=== PATIENT | female | born 1945 | race Caucasian/White ===

== ENCOUNTER 2020-10-25 14:43 | Outpatient (CLI) | payer MEDICARE, MEDICAID, SELFPAY ==
--- NOTE | 2020-10-25 14:55 | MM_ITS ---
WS: [id number] BILATERAL SCREENING DIGITAL MAMMOGRAM WITH CAD HISTORY: SCREENING COMPARISON: 10/14/2019 Bilateral CC and MLO views submitted. Computer aided detection analyzed. Breast composition: There are scattered areas of fibroglandular density. No suspicious masses, microc alcifications or architectural distortion. Benign calcifications in each breast. MM/[place] [id number] IMPRESSION: BI-RADS: 2-Benign FOLLOW UP: 1 Year Follow-up
== END 2020-10-25 14:44 | disposition home or self-care (01) ==
PROVIDERS: PCP Nurse Practitioner Family; Visit Provider Nurse Practitioner Family
DX: Z12.31 Encounter for screening mammogram for malignant neoplasm of breast (principal)
CPT/HCPCS: 77067

== ENCOUNTER 2020-11-22 11:58 | Outpatient (CLI) | payer MEDICARE, MEDICAID, SELFPAY ==
[2020-11-22 12:33] LABS: Basophils % 0.4 %; Eosinophils % 0.5 %; Hematocrit 36.7 % (37.0-47.0); Hemoglobin 11.3 g/dL (11.5-15.3); Lymphocytes # 1.7 10^3/uL (0.8-4.8); Lymphocytes % 22.1 %; Mean Corpuscular HGB Conc 30.8 g/dL (30.0-36.0); Mean Corpuscular Hemoglobin 28.9 pg (28.0-34.0); Mean Corpuscular Volume 93.9 fL (81-99); Mean Platelet Volume 9.4 fL (7.4-10.4); Monocytes # 0.6 10^3/uL (0.2-0.9); Monocytes % 7.5 %; Neutrophils # 5.29 10^3/uL (1.8-7.7); Neutrophils % 69.2 %; Nucleated Red Blood Cells % 0 %; Platelet Count 373 10^3/cmm (130-400); Red Blood Count 3.91 10^6/uL (4.1-5.3); Red Cell Distribution Width 13.2 % (12.1-15.1); White Blood Count 7.6 10^3/uL (4.0-10.0)
[2020-11-22 13:05] LABS: Alanine Aminotransferase 9 U/L (0-33); Albumin Level 3.8 g/dL (3.5-5.2); Alkaline Phosphatase 69 IU/L (35-105); Anion Gap 12.8 (5-19); Aspartate Amino Transferase 15 U/L (0-32); Blood Urea Nitrogen 12 mg/dL (8-23); Calcium 8.7 mg/dL (8.5-10.5); Carbon Dioxide 26 mmol/L (22-29); Chloride 103 mmol/L (98-107); Glucose 119 mg/dL (65-115); Osmolality Calculated 287 mOsm/kg (285-295); Potassium 3.8 mmol/L (3.5-5.1); Sodium 138 mmol/L (136-145); Thyroid Stimulating Hormone 1.35 uIU/mL (0.27-4.20); Total Bilirubin 0.6 mg/dL (0.15-1.2); Total Protein 6.8 g/dL (6.6-8.7)
== END 2020-11-22 11:59 | disposition home or self-care (01) ==
PROVIDERS: PCP Nurse Practitioner Family; Visit Provider Surgery
DX: R19.7 Diarrhea, unspecified (principal)
CPT/HCPCS: 36415; 80053; 83630; 84443; 85025; 87046; 87177; 87209; 87493

== ENCOUNTER 2020-12-04 11:18 | Outpatient (CLI) | payer MEDICARE, MEDICAID, SELFPAY ==
--- NOTE | 2020-12-04 11:25 | CT_ITS ---
WS: [id number] CT ABDOMEN PELVIS TECHNIQUE: Contrast-enhanced CT of the abdomen and pelvis with coronal and sagittal reformatted image s. CLINICAL INFORMATION: R10.9 - Unspecified abdominal pain COMPARISON: None. DLP: 1108.[address] scans at [facility] use at least one of these dose optimization techniques: automat ed exposure control; mA and/or kV adjustment per patient size (includes targeted exams where dose is matched to clinical indication); or iterative reconstruction. FINDINGS: Diffuse fatty infiltration of the liver. Normal portal vein and splenic vein. Prior cholecystectomy. Normal spleen. Fatty atrophy of the pancreas. Moderate esophageal hiatal hernia. Adrenal glands are n ormal. Normal renal parenchymal enhancement. No hydronephrosis. Aortic calcification. Normal caliber abdominal aorta. Rectal distention with air-fluid level. Mild thickening with mild induration involving the descending left colon and sigmoid colon suspicious for diverticulitis or colitis. Recommend correlation for inf ection. Sigmoid diverticulosis. No evidence of abscess or drainable fluid collection. No evidence of high-grade small or large bowel obstruction. Bibasilar atelectasis in the lung bases. Urine distended bladder. No periaortic lymphadenopathy. No pelvic or inguinal lymphadenopathy. Disc s pace narrowing worse L5-S1. Mild chronic compression superior endplate L2. CT/CT abdomen pelvis w con* [id number] IMPRESSION: 1. Mild thickening of the descending left colon and sigmoid colon with mild in duration. Recommend correlation for acute diverticulitis or colitis. 2. No drainable abscess or fluid collection. 3. Moderate esophageal hiatal hernia. 4. Cholecystectomy clips. 5. Mild diffuse fatty infiltration of the liver. 6. No hydronephrosis in either kidney
[2020-12-04] MEDS: iohexol 300 mg/mL 50 mL Btl PO (13:09)
[2020-12-04] MEDS: iohexol 300 mg/mL 100 mL Btl IV (13:26)
== END 2020-12-04 11:19 | disposition home or self-care (01) ==
LOC: RADWPI 11:21
PROVIDERS: PCP Nurse Practitioner Family; Visit Provider Surgery
DX: R10.9 Unspecified abdominal pain (principal); K76.0 Fatty (change of) liver, not elsewhere classified; K44.9 Diaphragmatic hernia without obstruction or gangrene
CPT/HCPCS: 74177; Q9967

== ENCOUNTER → 2021-01-29 11:14 | Outpatient (BNVA) | payer MEDICARE, MEDICAID, SELFPAY | PROVIDERS: PCP Nurse Practitioner Family; Visit Provider Specialist | DX: G30.9 Alzheimer's disease, unspecified (principal); F02.80 Dementia in other diseases classified elsewhere, unspecified severity, without behavioral disturbance, psychotic disturbance, mood disturbance, and anxiety | CPT/HCPCS: 96116; 99204 ==

== ENCOUNTER → 2021-07-24 08:05 | Outpatient (BNVA) | payer MEDICARE, MEDICAID, SELFPAY | PROVIDERS: PCP Nurse Practitioner Family; Visit Provider Specialist | DX: G30.9 Alzheimer's disease, unspecified (principal); F02.80 Dementia in other diseases classified elsewhere, unspecified severity, without behavioral disturbance, psychotic disturbance, mood disturbance, and anxiety; M79.7 Fibromyalgia | CPT/HCPCS: 20550; 20552; 99214; J1040; J3490 ==

== ENCOUNTER → 2022-03-31 10:49 | Outpatient (BNVA) | payer MEDICARE, MEDICAID, SELFPAY | PROVIDERS: PCP Nurse Practitioner Family; Visit Provider Specialist | DX: G30.9 Alzheimer's disease, unspecified (principal); F02.80 Dementia in other diseases classified elsewhere, unspecified severity, without behavioral disturbance, psychotic disturbance, mood disturbance, and anxiety; M79.7 Fibromyalgia | CPT/HCPCS: 20550; 20552; 99213; 99214 ==

== ENCOUNTER → 2022-07-09 13:05 | Outpatient (BNVA) | payer MEDICARE, MEDICAID, SELFPAY | PROVIDERS: PCP Nurse Practitioner Family; Visit Provider Specialist | DX: M79.7 Fibromyalgia (principal); G30.9 Alzheimer's disease, unspecified; F02.80 Dementia in other diseases classified elsewhere, unspecified severity, without behavioral disturbance, psychotic disturbance, mood disturbance, and anxiety | CPT/HCPCS: 20550; 20552; 99213; J1040; J3490 ==